=== PATIENT | female | born 1980 | race Hispanic/Latino ===

== ENCOUNTER 2021-10-19 17:48 | Inpatient (IN) | payer BC ==
--- OUTSIDE RECORDS SUMMARY | 2021-10-19 17:52 | XMS REPORT | Continuity of Care Document ---
:1980 Author Organization [facility] t Address [address] [place] [address] Care Team Providers Name Role Phone Nima VELAZQUEZ Primary Care Physician Unavailable Soni GARCIA Attending Clinician Unavailable Soni Diez Attending Clinician Luis Muir Attending Clinician Unavailable Nima Velazquez Admitting Clinician Unavailable Payers Payer Name Policy Type Policy Number Effective Date Expiration Date S romina [facility] - [id number] 2020 00:00:00 OUT OF STATE Problems Condition Condition Condition Status Onset Resolution Last Treating Co mments Source Name Details Category Date Date Treatment Clinician Date History of History of Disease Active U nivers Jo-en-Y Jo-en-Y 1-12 ity of gastric gastric 00:00: [place] bypass bypass 00 [facility] Abdominal Abdominal Disease Active 2016-10 Uni vers pain pain 2-14 ity of 00:00: [address] Bowel Bowel Disease Active 2016-10 Univers obstructio obstructio 2-14 it y of n n 00:00: [address] Surgery, Surgery, Disease Active Unive rs elective elective 9-04 ity of 00:00: [address] Multiparit Multiparit Disease Active U nivers y y 4-06 ity of 00:00: [address] Generalize Generalize Disease Active U nivers d anxiety d anxiety 10-28 ity of disorder disorder 00:00: [place] 00 Medical Branch Depression Depression Disease Active Overview : Univers 10-28 Formattin ity of 00:00: g of this 00 note Medical might be Branch different from the original. Wellbutri n History of History of Disease Active U nivers breast breast 10-28 ity of surgery surgery 00:00: [place] Medical Branch History of History of Disease Active Overview : Univers 10-28 Formattin ity of delivery, delivery, 00:00: g of this [place] currently currently 00 note Medi bill might be Bran ch different from the original. Previous CS x4. Desire BTL. Gallstones Gallstones Problem Active [facility] Depression Depression Problem Active [facility] Reflux Reflux Problem [facility] Lateral Lateral Diagnosis Active [facility] epicondyli epicondyli Cristy kes - tis of tis of Memoria right right l elbow elbow Outpati ent Clinics Pain in Pain in Diagnosis Active [facility] joint of joint of [facility] - right right [facility] elbow elbow l Outpat[facility] ent Clinics Right Right Problem Active [facility] carpal carpal [facility] - tunnel tunnel Memoria syndrome syndrome l Outpati ent Clinics Depression Depression Problem Active [facility] Bipolar Bipolar Problem Active [facility] affective affective Luke s - disorder, disorder, Marc nicole remission remission l status status Outpati unspecifie unspecifie en t d d Clinics Midline Midline Problem Active [facility] thoracic thoracic [facility] - back pain, back pain, Me moria unspecifie unspecifie l d d Outpati chronicity chronicity en t Clinics Anxiety Anxiety Problem Active [facility] Ulcer Ulcer Problem Active [facility] Lateral Lateral Diagnosis Active [facility] t epicondyli epicondyli Cristy kes - tis of tis of Memoria left elbow left elbow l Outpati ent Clinics Pain in Pain in Diagnosis Active [facility] left elbow left elbow [facility] Allergies, Adverse Reactions, Alerts Allergy Allergy Status Severity Reaction(s) Onset Inactive Treating Comm ents Source Name Type Date Date Clinician No Known DA Active U 2018-10 [facility] are [facility] No Known DA Active U 2018-10 [facility] Allergie 11-12 Jerem[facility] 00:00: [facility] 00 are [facility] No Known DA Active U 2018-10 [facility] Allergie 11-05 Jeremiah s 00:00: [facility] 00 are [facility] NO KNOWN Drug Active Univers ALLERGIE Class ity of S [facility] Social History Social Habit Start Date Stop Date Quantity Comments Source Exposure to Not sure [facility] SARS-CoV-2 [place] Medical (event) Branch History SDOH University o f Alcohol Frequency [place] M edical Branch History SDOH University o f Alcohol Std [place] Medical Drinks Branch History SDCO University o f Alcohol Binge [place] Medic al Branch Alcohol intake 2021-10-06 2021-10-06 0 /d University of 00:00:00 00:00:00 [facility] Alcohol Comment 2017-11-23 2017-11-23 she drinks a 12 Univ ersity of 00:00:00 00:00:00 pack daily [facility] Tobacco use and 2014-10-26 2014-10-26 Never used Universit y of exposure 00:00:00 00:00:00 [facility] Sex [birth year] At [birth year] Universit y of 00:00:00 00:00:00 [facility] Smoking Status Start Date Stop Date Source Never smoker [facility] Medications Ordered Filled Start Stop Current Ordering Indication Dosage Frequency Signature Comments Components Source Medication Medication Date Date Medication? Clinician (SIG) Name Name DULoxetine Yes [id number] 30mg Take 1 U nivers 30 mg 2-20 capsule by ity of capsule 00:00: mouth [place] 00 daily. Medical Branch Diclofenac Yes [id number] 2-4 grams Univers Sodium 1 % 2-20 twice ity of gel 00:00: daily as 00 needed for Medical pain Branch hydrOXYzine Yes [id number] 1 tabs Univers 25 mg 1-12 Every 6hr ity of tablet 00:00: as needed 00 for Medical anxiety Branch phenol 1.4 2016-10 Yes 1{spray Take 1 Un [place] % spray 2-18 } [place] by ity of 00:00: mouth as 00 needed for Medical Sore Branch throat. HYDROcodone 2016-10 Yes 1{tbl} Take 1 Un [place] -acetaminop 2-18 tablet by ity of hen 5-325 00:00: mouth [place] mg tablet 00 every 4 Medical (four) Branch hours as needed for Pain (scale 4-6). methylPREDN 2016-10 Yes Take by Un [place] ISolone 4 2-18 mouth ity of mg tablets 00:00: SEE-INSTRU [place] 00 CTIONS. Medical follow Branch package directions acetaminoph Yes 1{tbl} Take 1-2 Univers en-codeine 9-06 Tabs by ity of (TYLENOL 00:00: mouth [place] #3) 300-30 00 every 6 Medica l mg tablet (six) Branch hours as needed for Pain (scale 1-3) or Pain (scale 4-6). For patients < 12 years recommend do not exceed 5 doses or 2.6 gm in 24 hours totals for all acetaminop hen containing products. For adults with normal hepatic function recommend do not exceed 3 grams in 24 hours for all acetaminop hen containing products. ibuprofen Yes 600mg Take 1 Tab U nivers (MOTRIN) 06 by mouth ity of 600 mg 00:00: every 6 [place] tablet 00 (six) Medical hours as Branch needed for Pain (scale 1-3) or Pain (scale 4-6). Take with food or milk. Alfa Grimm Yes [facility] Tylenol Tylenol Yes [facility] not [facility] Immunizations Ordered Filled Immunization Date Status Comments [facility] e Immunization Name Name TDAP 2015-03-26 [facility] 00:00:00 [facility] Vital Signs Vital Name Observation Time Observation Value Comments Source Systolic blood 2021-10-06 16:04:00 125 mm[Hg] Univer sity of pressure [facility] Diastolic blood 2021-10-06 16:04:00 64 mm[Hg] [facility] Heart rate 2021-10-06 16:04:00 99 /min [facility] Body temperature 2021-10-06 16:04:00 37 Ning [facility] Respiratory rate 2021-10-06 16:04:00 18 /min [facility] Body weight 2021-10-06 16:04:00 57.607 kg [facility] BMI 2021-10-06 16:04:00 25.65 kg/m2 [facility] Oxygen saturation in 2021-10-06 16:04:00 99 /min [facility] blood by [facility] Pulse oximetry Branch Procedures Procedure Date / Time Performed Performing Clinician Sour e RAPID STREP SCREEN 2021-10-06 16:07:00 Kris Rodriguez [facility] FOR GROUP A Medical Branch RAPID INFLUENZA A/B 2021-10-06 16:07:00 Kris Rodriguez [facility] NOTICE OF PRIVACY 2021-10-06 16:01:13 Doctor Unassigned, No [facility] PRACTICES Name [facility] CONSENT/REFUSAL FOR 2021-10-06 16:00:56 [facility] AND Name Medical [place] TREATMENT Encounters Start End Encounter Admission Attending Care Care Encounter Source Date/Time Date/Time Type Type Clinicians Facility Department ID 2021-10-06 2021-10-06 Emergency X [facility] ERT [id number] Univers 10:07:00 11:16:00 JOSEPH yeagery of [facility] 2021-10-06 2021-10-06 Emergency [facility] [id number] Univers 10:07:00 11:16:00 Joseph AZUL [id number] [facility] [id number] [facility] [id number] [facility] 084 Branch 2019-09-11 2019-09-11 Outpatient VIRGILIO العليN DAYS [id number] [facility] 05:05:00 05:05:00 Rom[facility] [id number] [facility] 2019-01-12 2019-01-12 [facility] [id number] [address] 09:30:00 09:30:00 [facility] ent Clinics 2018-10-26 2018-10-26 [facility] [id number] 13:30:00 13:30:00 [facility] ent Clinics Results Test Description Test Time Test Comments Results Result Comments Source HGB HCT 2019-09-11 05:48:00 Test Item Value Reference Range Interpretation Comme nts HEMOGLOBIN (test code = HGB) 9.7 g/dL 12.0-15.0 L HEMATOCRIT (test code = HCT) 31.4 % 35.7-44.8 L HCG SERUM [id number] 16:10:00 Test Item Value Reference Range Interpretation Comments HCG SERUM QUAL NEGATIVE NEGATIVE This is a nora litative (test code = HCGQL) screenin g test.The quantitative Bh cg may be helpful.Weakly positive results should be repeated in 48 hours. [id number] 15:34:00 Test Item Value Reference Range Interpretation Comments GLUCOSE (test code = GLU) 93 mg/dl 70-100 N CBC W/AUTO [id number] 15:24:00 Test Item Value Reference Range Interpretation Comments WHITE BLOOD CELL (test code = 3.6 x10 3/uL 3.2-11.5 N WBC) RED BLOOD CELL (test code = 4.09 x10(6)/m 3.70-5.10 N RBC) HEMOGLOBIN (test code = HGB) 9.4 g/dL 12.0-15.0 L HEMATOCRIT (test code = HCT) 30.6 % 35.7-44.8 L MEAN CELL VOLUME (test code = 75 fL 80-100 L MCV) MEAN CELL HGB (test code = MCH) 23.0 pg 26.2-33.8 L MEAN CELL HGB CONCENTRATION 30.8 g/dL 30.0-34.0 N (test code = MCHC) RED CELL DISTRIBUTION WIDTH 19.4 % 11.3-14.5 H (test code = RDW) PLATELET COUNT (test code = 278 x10 3/uL 130-408 N PLT) MEAN PLATELET VOLUME (test code 8.9 fl 6.4-10.5 N = MPV) NEUTROPHIL % (test code = NT%) 56.7 % 40.0-70.0 N LYMPHOCYTE % (test code = LY%) 31.3 % 20-40 N MONOCYTE % (test code = MO%) 9.0 % 1-10 N EOSINOPHIL % (test code = EO%) 2.1 % 1.0-5.0 N BASOPHIL % (test code = BA%) 0.9 % 0.0-1.0 N NEUTROPHIL # (test code = NT#) 2.0 x10 3/uL 1.6-7.2 N LYMPHOCYTE # (test code = LY#) 1.10 x10 3/uL 1.1-2.7 N MONOCYTE # (test code = MO#) 0.3 x10 3/uL 0.3-0.8 N EOSINOPHIL # (test code = EO#) 0.1 x10 3/uL 0.0-0.5 N BASOPHIL # (test code = BA#) 0.0 x10 3/uL 0.0-0.1 N
[2021-10-19] MEDS ORDERED: ONDANSETRON 4 MG/2 ML VIAL ONE (18:53)
[2021-10-19] MEDS ORDERED: NA CHLORIDE 0.9% 1,000 ML ONE ×2 (18:53→20:36)
[2021-10-19] MEDS ORDERED: MEPERIDINE HCL 25 MG/ML SYR ONE (18:53)
[2021-10-19] MEDS ORDERED: FAMOTIDINE 20 MG/2 ML VIAL IV ONE (18:54)
[2021-10-19 18:56] LABS: Absolute Lymphocytes (CBC) 0.5 K/uL (0.7-4.9); Hematocrit 25.4 % (36.0-45.0); Lymphocytes % 7.1 % (15.3-44.8); MPV 9.3 fL (7.6-11.3); RBC Red Blood Cell Count 3.58 M/uL (3.86-4.86)
[2021-10-19 19:09] LABS: Potassium 3.4 mmol/L (3.5-5.1); Sodium Level 136 mmol/L (136-145)
[2021-10-19] MEDS ORDERED: CIPROFLOXACIN 400mg IV 400 MG/200 ML BAG IV ONE (19:16)
[2021-10-19] MEDS ORDERED: metroNIDAZOLE 500 MG TABLET ONE (19:16)
[2021-10-19 19:23] LABS: AST/SGOT 41 U/L (15-37); Alkaline Phosphatase 123 U/L (45-117); Bilirubin Total 0.3 mg/dL (0.2-1.0); Protein, Total 6.4 g/dL (6.4-8.2)
[2021-10-19 19:25] LABS: Blood Morphology Comment NOTED (NOT SEEN); Hypochromasia 1+; Platelet Estimate ADEQ; White Blood Cell Scan OK (OK)
--- NOTE | 2021-10-19 19:32 | RAD REPORT ---
EXAM DESCRIPTION: CTAbdomen Pelvis W Contrast - 10/19/2021 7:07 pm CLINICAL HISTORY: Abdominal pain. ABD PAIN COMPARISON: <Comparisons> TECHNIQUE: Biphasic CT imaging of the abdomen and pelvis was performed with 100 ml non-ionic IV cont rast. All CT scans are performed using dose optimization technique as appropriate and may include automated exposure control or mA/KV adjustment according to patient size. FINDINGS: The lung bases are clear.Cholecystectomy clips. The liver, spleen, pancreas, adrenal glands and kidneys are within normal limits. Postsurgical changes are present involving small intestine on the left. Moderate retained stool is se en in the colon. There is moderate thickening of the descending colon suspicious for colitis. The philip endix is normal. No free air, free fluid or abscess. No evidence of significant lymphadenopathy. No suspicious bony findings. IMPRESSION: Moderate descending colitis is present. No pneumatosis coli or other complicating featur e.
[2021-10-19 19:49] LABS: BUN Blood Urea Nitrogen 9 mg/dL (7-18); Bicarbonate 17 mmol/L (21-32); Bilirubin Direct 0.1 mg/dL (0-0.2); Glucose Level 93 mg/dL (74-106)
[2021-10-19 19:57] LABS: Albumin 2.7 g/dL (3.4-5.0); Lipase 53 U/L (73-393)
[2021-10-19 20:25] LABS: Urine Blood Trace-intact (Negative); Urine Glucose Negative (Negative); Urine Protein Negative (Negative); Urine Specific Gravity <=1.005 (1.005-1.030)
[2021-10-19] MEDS ORDERED: PANTOPRAZOLE 40 MG INJ ONE (20:36)
[2021-10-19 20:38] LABS: ALT/SGPT 75 U/L (12-78)
--- NOTE | 2021-10-19 21:04 | ER ---
Nurse's Notes [facility] Name: Amy Vee Age: 41 yrs Sex: Female : 1980 Arrival Date: 10/19/2021 Time: 17:53 Bed 7 Private MD: Diagnosis: Left sided colitis-Intractable pain;Nausea with vomiting, unspecified;Dehydration Presentation: 10/19 18:02 Chief complaint: Patient states: left side upper and lower abdominal pain since [facility] Wednesday; worse when she eats and multiple episodes of diarrhea. Pt denies vomiting. Coronavirus screen: Vaccine status: Patient reports receiving the 2nd dose of the covid vaccine. Client denies travel out of the [place] in the last 14 days. Ebola Screen: Patient negative for fever greater than or equal to 101.5 degrees Fahrenheit, and additional compatible Ebola Virus Disease symptoms Patient denies exposure to infectious person. Patient denies travel to an Ebola-affected area in the 21 days before illness onset. Initial Sepsis Screen: Does the patient meet any 2 criteria? HR > 90 bpm. Does the patient have a suspected source of infection? No. Patient's initial sepsis screen is negative. Risk Assessment: Do you want to hurt yourself or someone else? Patient reports no desire to harm self or others. Onset of symptoms was October 15, 2021. 18:02 Method Of Arrival: Ambulatory [facility] 18:02 Acuity: GAL 3 [facility] Triage Assessment: 18:05 General: Appears distressed, uncomfortable, Behavior is calm, cooperative, appropriate [facility] for age. Pain: Complains of pain in abdomen. GI: Reports cramping, diarrhea. 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 - Social history:: Smoking status: Patient denies any tobacco usage or history of. Screenin:00 Abuse screen: Denies threats or abuse. Nutritional screening: No deficits noted. jd3 Tuberculosis screening: No symptoms or risk factors identified. Fall Risk Ambulatory Aid- None/Bed Rest/Nurse Assist (0 pts). Gait- Normal/Bed Rest/Wheelchair (0 pts) Mental Status- Oriented to own ability (0 pts). Total Peters Fall Scale indicates No Risk (0-24 pts). Assessment: 18:59 General: Appears in no apparent distress. uncomfortable, Behavior is calm, cooperative, jd3 appropriate for age. Pain: Complains of pain in abdomen. Neuro: Level of Consciousness is awake, alert, obeys commands, Oriented to person, place, time, situation. Cardiovascular: Capillary refill < 3 seconds Patient's skin is warm and dry. Respiratory: Airway is patent Respiratory effort is even, unlabored, Respiratory pattern is regular, symmetrical, Denies cough, shortness of breath. GI: Abdomen is non-distended, Abd is soft X 4 quads Abdomen is tender to palpation X 4 quads. Reports diarrhea, nausea. : No signs and/or symptoms were reported regarding the genitourinary system. EENT: No signs and/or symptoms were reported regarding the EENT system. Derm: Skin is intact, Skin is dry, Skin is normal, Skin temperature is warm. Musculoskeletal: No signs and/or symptoms reported regarding the musculoskeletal system. Vital Signs: 18:02 BP 115 / 65; Pulse 108; Resp 18; Temp 98.7; Pulse Ox 100% ; Weight 58.97 kg; Height 5 jh5 ft. 0 in. (152.40 cm); Pain 10/10; 19:23 BP 100 / 59; Pulse 87; Resp 18 S; Pulse Ox 98% on R/A; as6 18:02 Body Mass Index 25.39 (58.97 kg, 152.40 cm) [facility] ED Course: 17:53 Patient arrived in ED. mr 17:54 Carl Torres MD is Attending Physician. kdr 18:05 Triage completed. jh5 18:05 Arm band placed on right wrist. 5 18:30 Rosalio Kelly RN is Primary Nurse. jd3 19:00 Patient has correct armband on for positive identification. Bed in low position. Call jd3 light in reach. Side rails up X 1. Adult w/ patient. Pulse ox on. NIBP on. 19:03 Primary Nurse role handed off by Rosalio Kelyl RN mw2 19:07 CT Abd/Pelvis - IV Contrast Only In Process Unspecified. EDMS 19:08 Attending Physician role handed off by Carl Torres MD [facility] 19:08 Juan Perez MD is Attending Physician. mh7 19:09 Fabián Mason, MARIA DE JESUS is Primary Nurse. as6 19:24 Inserted saline lock: 22 gauge in left forearm, using aseptic technique. Blood as6 collected. 21:02 Alaina Trujillo MD is Hospitalizing Provider. [facility] 10/20 07:00 No provider procedures requiring assistance completed. Patient admitted, IV remains in jl7 place. Administered Medications: 10/19 18:58 Drug: NS 0.9% 1000 ml Route: IV; Rate: 1 bolus; Site: left forearm; jd3 18:58 Drug: Pepcid (famotidine) 20 mg Route: IVP; Site: left forearm; jd3 18:58 Drug: Zofran (Ondansetron) 4 mg Route: IVP; Site: left forearm; jd3 18:58 Drug: Demerol (meperidine) 25 mg Route: IVP; Site: left forearm; jd3 19:23 Drug: Cipro (ciprofloxacin) 400 mg Volume: 200 ml; Route: IVPB; Infused Over: 60 mins; as6 Site: left forearm; 19:23 Drug: Flagyl (metroNIDAZOLE) 500 mg Route: PO; as6 20:40 Drug: ProTONIX (pantoprazole) 40 mg Route: IVP; Site: left forearm; as6 20:40 Drug: NS 0.9% 1000 ml Route: IV; Rate: 1000 ml; Site: left forearm; as6 21:43 Drug: Dilaudid (HYDROmorphone) 0.5 mg Route: IVP; Site: left forearm; as6 Outcome: 21:04 Decision to Hospitalize by Provider. [facility] 10/20 07:00 Admitted to ER Hold. Please see [employer] for further documentation. jl7 Condition: stable Discharge instructions given to patient, Instructed on the need for admit, Demonstrated understanding of instructions. 19:17 Patient left the ED. jl7 Signatures: Dispatcher [employer] EDMS Carl Torres MD MD kdr Rivera, Mary mr ArshadZac RN RN jl7 Rosalio Kelly RN RN jd3 Samara Brito 2 Juan Perez MD MD [facility] Akanksha Shine RN RN 5 Fabián Mason, RN RN as6
--- NOTE | 2021-10-19 21:04 | EDPHYS ---
Physician Documentation [facility] Name: Amy Vee Age: 41 yrs Sex: Female : 1980 Arrival Date: 10/19/2021 Time: 17:53 Bed 7 Private MD: ED Physician Juan Perez HPI: 10/19 18:34 This 41 yrs old Female presents to ER via Ambulatory with complaints of kdr Abdominal Pain, Vomiting/Diarrhea, Flu Symptoms. 18:34 The patient presents to the emergency department with nausea, that is mild, diarrhea, kdr that is intermittent, abdominal pain, of the anterior aspect of left lateral abdomen, left upper quadrant and left lower quadrant. Onset: The symptoms/episode began/occurred suddenly, Wednesday night after going out to a restaurant. Possible causes: bad food exposure. The symptoms are aggravated by food , The symptoms are alleviated by nothing. Associated signs and symptoms: Pertinent positives: abdominal pain, diarrhea, nausea, Pertinent negatives: anorexia, constipation, dysuria, fever, hematuria, vaginal discharge. Severity of symptoms: At their worst the symptoms were severe incapacitating just prior to arrival, in the emergency department the symptoms are unchanged. The patient has not experienced similar symptoms in the past. The patient has been recently seen by a physician: Patient was seen in the ER [place] on night. According the patient they did nothing for her then other than tell her to go home and take Tylenol and Motrin. Her symptoms have continued.. 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 - Social history:: Smoking status: Patient denies any tobacco usage or history of. ROS: 18:37 Constitutional: Negative for fever, chills, and weight loss, Eyes: Negative for injury, kdr pain, redness, and discharge, ENT: Negative for injury, pain, and discharge, Neck: Negative for injury, pain, and swelling, Cardiovascular: Negative for chest pain, palpitations, and edema, Respiratory: Negative for shortness of breath, cough, wheezing, and pleuritic chest pain, Back: Negative for injury and pain, : Negative for injury, bleeding, discharge, and swelling, MS/Extremity: Negative for injury and deformity, Skin: Negative for injury, rash, and discoloration, Neuro: Negative for headache, weakness, numbness, tingling, and seizure activity. Psych: Negative for depression, anxiety, suicide ideation, homicidal ideation, and hallucinations, Allergy/Immunology: Negative for hives, rash, and allergies, Endocrine: Negative for neck swelling, polydipsia, polyuria, polyphagia, and marked weight changes, Hematologic/Lymphatic: Negative for swollen nodes, abnormal bleeding, and unusual bruising. 18:37 Abdomen/GI: Positive for abdominal pain, nausea, diarrhea, abdominal cramps, She states that whenever she eats or drinks anything she has immediate diarrhea. Exam: 18:37 Constitutional: This is a well developed, well nourished patient who is awake, alert, kdr and in mild distress. Head/Face: Normocephalic, atraumatic. Eyes: Pupils equal round and reactive to light, extra-ocular motions intact. Lids and lashes normal. Conjunctiva and sclera are non-icteric and not injected. Cornea within normal limits. Periorbital areas with no swelling, redness, or edema. Neck: Trachea midline, no thyromegaly or masses palpated, and no cervical lymphadenopathy. Supple, full range of motion without nuchal rigidity, or vertebral point tenderness. No Meningismus. Chest/axilla: Normal chest wall appearance and motion. Nontender with no deformity. No lesions are appreciated. Cardiovascular: Regular rate and rhythm with a normal S1 and S2. No gallops, murmurs, or rubs. Normal PMI, no JVD. No pulse deficits. Respiratory: Lungs have equal breath sounds bilaterally, clear to auscultation and percussion. No rales, rhonchi or wheezes noted. No increased work of breathing, no retractions or nasal flaring. Back: No spinal tenderness. No costovertebral tenderness. Full range of motion. Skin: Warm, dry with normal turgor. Normal color with no rashes, no lesions, and no evidence of cellulitis. MS/ Extremity: Pulses equal, no cyanosis. Neurovascular intact. Full, normal range of motion. Neuro: Awake and alert, GCS 15, oriented to person, place, time, and situation. Cranial nerves II-XII grossly intact. Motor strength 5/5 in all extremities. Sensory grossly intact. Cerebellar exam normal. Normal gait. Psych: Awake, alert, with orientation to person, place and time. Behavior, mood, and affect are within normal limits. 18:37 Abdomen/GI: Inspection: abdomen appears normal, Bowel sounds: diminished, in all quadrants, Palpation: soft, mild abdominal tenderness. Vital Signs: 18:02 BP 115 / 65; Pulse 108; Resp 18; Temp 98.7; Pulse Ox 100% ; Weight 58.97 kg; Height 5 jh5 ft. 0 in. (152.40 cm); Pain 10/10; 19:23 BP 100 / 59; Pulse 87; Resp 18 S; Pulse Ox 98% on R/A; as6 18:02 Body Mass Index 25.39 (58.97 kg, 152.40 cm) 5 MDM: 18:37 Data reviewed: vital signs, lab test result(s), radiologic studies. Counseling: I had a kdr detailed discussion with the patient and/or guardian regarding: the historical points, exam findings, and any diagnostic results supporting the discharge/admit diagnosis, lab results, radiology results. 21:01 Differential diagnosis: Nonspecific abd pain, gastritis, pancreatitis, diverticulitis, mh7 viral gastroenteritis, gastroenteritis. Data interpreted: Pulse oximetry: on room air is 98 %. Interpretation: normal. Response to treatment: the patient's symptoms have mildly improved after treatment. 21:01 ED course: No acute distress, vital signs stable, no focal neurological deficits. Still mary having left-sided abdominal pain, nausea, diarrhea. Discussed all test results and findings. She reports history of iron deficiency anemia but has not been taking any medication. Stool tested from sample that patient gave and was guaiac negative brown stool.. 21:04 Patient medically screened. 7 10/19 18:33 Order name: Basic Metabolic Panel; Complete Time: 20:51 [facility] 10/19 18:33 Order name: CBC with Diff; Complete Time: 19:31 [facility] 10/19 18:33 Order name: Hepatic Function; Complete Time: 20:51 [facility] 10/19 18:33 Order name: Lipase; Complete Time: 20:51 [facility] 10/19 18:33 Order name: Stool Culture [facility] 10/19 18:33 Order name: Fecal Leukocyte Stain; Complete Time: 08:13 [facility] 10/19 18:33 Order name: Occult Blood; Complete Time: 08:13 [facility] 10/19 18:33 Order name: Ova And Parasites [facility] 10/19 18:37 Order name: Acetaminophen [facility] 10/19 18:37 Order name: Salicylate [facility] 10/19 18:37 Order name: PT-INR; Complete Time: 19:31 [facility] 10/19 18:38 Order name: Acetaminophen Level; Complete Time: 19:34 [facility] 10/19 18:38 Order name: Salicylates Level; Complete Time: 19:31 [facility] 10/19 19:24 Order name: CBC Smear Scan; Complete Time: 19:31 [facility] 10/19 18:33 Order name: CT Abd/Pelvis - IV Contrast Only; Complete Time: 19:34 [facility] 10/19 20:24 Order name: Urine Dipstick-Ancillary; Complete Time: 20:26 [facility] 10/19 20:51 Order name: Lactate; Complete Time: 08:13 [facility] 10/19 20:51 Order name: Procalcitonin; Complete Time: 08:13 [facility] 10/19 21:00 Order name: COVID-19 (Coronavirus) Document "Date of Onset" if Symptomatic [facility] 10/20 00:35 Order name: Iron; Complete Time: 08:13 [facility] 10/20 00:35 Order name: Transferrin Sat/Iron Binding; Complete Time: 08:13 [facility] 10/20 01:12 Order name: SARS-COV-2 RT PCR; Complete Time: 08:13 [facility] 10/20 02:07 Order name: CREATININE WHOLE BLOOD; Complete Time: 08:13 [facility] 10/20 04:03 Order name: CBC with Automated Diff; Complete Time: 08:13 [facility] 10/20 04:26 Order name: Comprehensive Metabolic Panel; Complete Time: 08:13 [facility] 10/20 04:26 Order name: Lipid Profile; Complete Time: 08:13 [facility] 10/19 18:33 Order name: IV Saline Lock; Complete Time: 18:50 [facility] 10/19 18:33 Order name: Labs collected and sent; Complete Time: 18:50 [facility] 10/19 18:33 Order name: Urine Test (obtain specimen); Complete Time: 20:25 kdr Administered Medications: 18:58 Drug: NS 0.9% 1000 ml Route: IV; Rate: 1 bolus; Site: left forearm; jd3 18:58 Drug: Pepcid (famotidine) 20 mg Route: IVP; Site: left forearm; jd3 18:58 Drug: Zofran (Ondansetron) 4 mg Route: IVP; Site: left forearm; jd3 18:58 Drug: Demerol (meperidine) 25 mg Route: IVP; Site: left forearm; jd3 19:23 Drug: Cipro (ciprofloxacin) 400 mg Volume: 200 ml; Route: IVPB; Infused Over: 60 mins; as6 Site: left forearm; 19:23 Drug: Flagyl (metroNIDAZOLE) 500 mg Route: PO; as6 20:40 Drug: ProTONIX (pantoprazole) 40 mg Route: IVP; Site: left forearm; as6 20:40 Drug: NS 0.9% 1000 ml Route: IV; Rate: 1000 ml; Site: left forearm; as6 21:43 Drug: Dilaudid (HYDROmorphone) 0.5 mg Route: IVP; Site: left forearm; as6 Disposition Summary: 10/19/21 21:04 Hospitalization Ordered Hospitalization Status: Inpatient Admission [facility] Provider: Alaina Trujillo Henrik Condition: Stable [facility] Problem: [facility] Symptoms: have improved [facility] Bed/Room Type: Standard [facility] Location: Telemetry/MedSurg (Inpatient)(10/20/21 17:24) Room Assignment: 405(10/20/21 17:24) Diagnosis - Left sided colitis - Intractable pain mh7 - Nausea with vomiting, unspecified mh7 - Dehydration [facility] Forms: - Medication Reconciliation Form 7 - SBAR form 7 Signatures: Dispatcher [employer] Nadja Mendoza Martha, RN RN mw Rittger, Kevin, MD MD kdr Roszak, Josh, PA PA jr8 Davies, Jonathon, RN RN jd3 Holmes, Maurice, MD MD Akanksha Buckner RN RN 5 Fabián Mason RN RN as6 Corrections: (The following items were deleted from the chart) 10/20 01:35 10/19 21:04 Telemetry/MedSurg (Inpatient) [facility] 10/20 01:35 10/19 21:04 [facility] 01/17 17:24 01:35 [facility] ER HOLD mw bd 17:24 01:35 ERHOLD- mw bd
[2021-10-19] MEDS ORDERED: HYDROMORPHONE HCL 0.5 MG/0.5 ML INJ ONE (21:36)
--- NOTE | 2021-10-19 21:46 | P.HP ---
Certification for Inpatient Patient admitted to: Observation With expected LOS: <2 Midnights Patient will require the following post-hospital care: None Practitioner: I am a practitioner with admitting privileges, knowledge of patient current condition, hospital course, and medical plan of care. Services: Services provided to patient in accordance with Admission requirements found in Title 42 Section 412.3 of the Code of Federal Regulations Patient History Date of Service: 10/19/21 Reason for admission: colitis History of Present Illness: Ms. Vee is a 41 yo F with iron deficiency anemia who presents with 10/10 left sided abdominal pain and diarrhea beginning on Wednesday after she ate at a buffet. She reports fatigue, weakness, nausea, and cramping. She cannot keep any food or water down. Sometimes she is able to tolerate small sips of pedialyte. She says she feels very dehydrated. She received demerol in the ED, and is still experiencing severe pain. She has been told she was anemic in the past. She reports regular monthly menstrual cycles that last 5-7 days and are very heavy. She is scheduled to see an OBGYN about the menorrhaghia on 11/06. She does not take any iron supplements. Hemoglobin 7.8 MCV 70.8 K 3.4 CTAP IMPRESSION: Moderate descending colitis is present. No pneumatosis coli or other complicating feature. Allergies Morphine Allergy (Uncoded 09/16/17 03:24) Unknown Home Medications: Cyanocobalamin [B12 Injection] 1,000 mcg IJ EVERY 7TH DAY 02/03/16 Ferrous Sulfate [Feosol] 325 mg PO DAILY 02/03/16 Phentermine HCl [Adipex-P] 37.5 mg PO DAILY 10/06/16 Hydrocodone 10/APAP 325 [[place] 10/325] 1 tab PO Q6H PRN #30 tab 10/09/16 - Past Medical/Surgical History Diabetic: No -: iron deficiency anemia -: PUD -: kidney stones -: gastritis -: [facility] -: [facility] -: [facility] -: [facility] -: -: Breast Implants -: Gastric Bypass -: carmenza, exlap, hernia repair - Family History Mother -: Hypertension, Diabetes Father -: Stroke, Cancer, Seizures - Social History Smoking Status: Never smoker Alcohol use: Yes CD- Drugs: No Caffeine use: Yes Place of Residence: Home Review of Systems 10-point ROS is otherwise unremarkable General: Weakness, Malaise Eyes: Unremarkable ENT: Unremarkable Respiratory: Unremarkable Cardiovascular: Unremarkable Gastrointestinal: Abdominal Pain, Diarrhea Genitourinary: Unremarkable Musculoskeletal: Unremarkable Integumentary: Unremarkable Neurological: Unremarkable Lymphatics: Unremarkable Physical Examination - Physical Exam General: Alert HEENT: Atraumatic, PERRLA, Mucous membr. moist/pink, EOMI, Sclerae nonicteric Neck: Supple, 2+ carotid pulse no bruit, No LAD, Without JVD or thyroid abnormality Respiratory: Clear to auscultation bilaterally, Normal air movement Cardiovascular: Regular rate/rhythm, Normal S1 S2 Gastrointestinal: Normal bowel sounds, Soft and benign, Non-distended, Tenderness Musculoskeletal: No tenderness Integumentary: No rashes Neurological: Normal speech, Normal strength at 5/5 x4 extr, Normal tone, Normal affect Lymphatics: No axilla or inguinal lymphadenopathy - Studies Laboratory Data (last 24 hrs) 10/19/21 18:55: PT 11.5, INR 1.00 10/19/21 18:48: WBC 7.50, Hgb 7.8 L, Hct 25.4 L, Plt Count 255 10/19/21 18:48: Sodium 136, Potassium 3.4 L, BUN 9, Creatinine 0.71, Glucose 93, Total Bilirubin 0.3, AST 41 H, ALT 75, Alkaline Phosphatase 123 H, Lipase 53 L Microbiology Data (last 24 hrs): 10/19/21 20:19 Stool Fecal Leukocyte Stain - Final 10/19/21 20:19 Stool Occult Blood - Final Assessment and Plan - Problems (Diagnosis) (1) Dehydration Current Visit: Yes Status: Acute (2) Colitis Current Visit: Yes Status: Acute (3) NICHOL (iron deficiency anemia) Current Visit: Yes Status: Chronic Qualifiers: Iron deficiency anemia type: unspecified iron deficiency Qualified Code(s): D50.9 - Iron deficiency anemia, unspecified - Plan NPO continue IV cipro and flagyl continue IV fluid hydration pain management and antiemetics as needed anemia workup pending, will consider IV iron transfusion, will transfuse pRBCs to goal hemoglobin >7 as needed potassium replacement protocol stool cultures pending DVT ppx Discharge Plan: Home Plan to discharge in: 48 Hours - Advance Directives Does patient have a Living Will: No Does patient have a Durable POA for Healthcare: No - Code Status/Comfort Care Code Status Assessed: Yes (full code ) Critical Care: No Time Spent Managing Pts Care (In Minutes): 70
[2021-10-20] MEDS: NA CHLORIDE 0.9% 1,000 ML IV SCH ×4 (00:10→18:52)
[2021-10-20] MEDS ORDERED: DICYCLOMINE HCL 10 MG CAP PO ONE (00:10)
[2021-10-20] MEDS ORDERED: ACETAMINOPHEN 500 MG TAB PO PRN (00:10)
[2021-10-20] MEDS ORDERED: ONDANSETRON 4 MG/2 ML VIAL IV PRN (00:10)
[2021-10-20] MEDS ORDERED: HYDROMORPHONE HCL 0.5 MG/0.5 ML INJ IV PRN (00:10)
[2021-10-20 00:35] LABS: Ferritin 22.4 ng/mL (8-388)
[2021-10-20] MEDS: FENTANYL CITR 100 MCG/2 ML IV PRN ×2 (01:08→22:56)
[2021-10-20] MEDS: METRONIDAZOLE 500mg IVPB 500 MG/100 ML BAG IV SCH ×3 (03:00→17:00)
[2021-10-20] MEDS ORDERED: METRONIDAZOLE 500mg IVPB 500 MG/100 ML BAG IV ONE ×3 (03:36→18:12)
[2021-10-20] MEDS ORDERED: PROMETHAZINE INJ 25 MG/ML AMP ONE (03:41)
[2021-10-20 03:46] LABS: Absolute Lymphocytes (CBC) 0.7 K/uL (0.7-4.9); Hematocrit 24.7 % (36.0-45.0); Lymphocytes % 11.6 % (15.3-44.8); MPV 9.4 fL (7.6-11.3); RBC Red Blood Cell Count 3.46 M/uL (3.86-4.86)
[2021-10-20] MEDS: PROMETHAZINE INJ 25 MG/ML AMP IV PRN (03:52)
[2021-10-20 04:20] LABS: ALT/SGPT 83 U/L (12-78); AST/SGOT 77 U/L (15-37); Albumin 2.1 g/dL (3.4-5.0); Alkaline Phosphatase 120 U/L (45-117); BUN Blood Urea Nitrogen 5 mg/dL (7-18); Bicarbonate 21 mmol/L (21-32); Bilirubin Total 0.3 mg/dL (0.2-1.0); Glucose Level 91 mg/dL (74-106); HDL Cholesterol 54 mg/dL (40-60); LDL Cholesterol, Calculated 27 (<130); Potassium 3.8 mmol/L (3.5-5.1); Protein, Total 5.3 g/dL (6.4-8.2); Sodium Level 140 mmol/L (136-145)
[2021-10-20] MEDS: CIPROFLOXACIN 400mg IV 400 MG/200 ML BAG IV SCH ×3 (07:00→20:48)
[2021-10-20] MEDS ORDERED: THIAMINE 200 MG/2 ML INJ ONE (08:56)
[2021-10-20] MEDS ORDERED: FOLIC ACID 5 MG/ML VIAL ONE (08:59)
[2021-10-20] MEDS ORDERED: FOLIC ACID 5 MG/ML VIAL IVP SCH (09:00)
[2021-10-20] MEDS: THIAMINE 200 MG/2 ML INJ IVP SCH (09:00)
[2021-10-20] MEDS: FOLIC ACID 1 MG in NA CHLORIDE 0.9% 50 ML IV SCH (09:00)
[2021-10-20] MEDS: SOD FERRIC GLUC COMPLX/SUCROSE 125 MG in NA CHLORIDE 0.9% 100 ML IV SCH (09:00)
--- NOTE | 2021-10-20 10:15 | CON ---
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 She had a defect of the jejunojejunostomy. She did well subsequently thereafter in 2017. She now presents [facility] for abdominal pain in the left lower quadrant. Past Medical History: Significant for obesity, iron deficiency anemia, PVD, kidney stones, gastritis , breast implants and body lift for cosmetic purposes. Past Surgical History: Includes multiple C-sections. She had a Jo-en-Y gastric bypass in 2007 and laparoscopic cholecystectomy. She has had 5 C-sections total. Home Medications: Include cyanocobalamin, B12, ferrous sulfate. Add Adipex (phentermine) and [place]. Allergies: TO MORPHINE. Social History: She denies smoking. She drinks alcohol recreationally. She denies recreational oswald g use. Family History: Significant for hypertension, diabetes. Family history in father significant for [place], cancer, and seizures. Review of Systems: Ten-point review of systems other than HPI, denies. Physical Examination: General: At the time of my examination; she is awake, alert, oriented. Psychiatric: She is appropriate. Conversive. Vital Signs: Blood pressure 98/62, pulse 73, respiratory rate 16, temperature 98.8, SpO2 97% on room air. Neck: Supple without JVD. Chest: Normal expansion and excursion. Cardiovascular: Regular rate and rhythm. Pulmonary: Clear to auscultation bilaterally. Abdomen: Soft with positive left lower quadrant tenderness to palpation. No focal peritonitis. She has well-healed surgical scars evident. Pelvis: Stable. Extremities: No clubbing, cyanosis, or edema. Skin: Warm and dry. Laboratory Data: Revealed a white blood cell count of 6.4, hemoglobin 7.4, hematocrit of 24.7, plate let count was 252, neutrophils 76%. Her sodium 140, potassium 3.8, chloride 116, carbon dioxide 21, BUN 5, creatinine 0.5, glucose is 91. Her lactic acid was 0.8. AST 77, ALT 83, alkaline phosphatase is 120. Lipase was 53. Procalcitonin 0.06. Her COVID was positive. Salicylates was less than 1.7 . She had imaging performed, which included a CT of the abdomen and pelvis on 10/19 officially read as postsurgical changes are present involving the small intestine on the left, moderate retained stoo l seen in the colon, moderate thickening of the descending colon suspicious for colitis. The appendi x is normal. The official impression is moderate descending colitis is present and the pneumatosis c mj or other complicating features. Assessment And Plan: This is a 41-year-old female with multiple medical problems as described above, who presents with left-sided colitis. She has never had a colonoscopy. Plan; 1.IV fluid hydration. 2.N.p.o. 3.Antibiotic coverage. 4.Serial exams. 5.I explained the patient will need a colonoscopy after she resolves this colitis episode. She unde rstands the above stated plan and agrees to proceed as indicated. AARON/TYSON Voice ID: [id number] Report ID: [id number]
--- NOTE | 2021-10-20 10:23 | P.PN ---
Subjective Date of Service: 10/20/21 Chief Complaint: colitis Subjective: Improving (Still with abdominal pain to the left lower quadrant. Nausea improved. Some passage of gas. No bowel movement noted) Physical Examination - Studies Laboratory Data (last 24 hrs) 10/19/21 18:55: PT 11.5, INR 1.00 10/19/21 18:48: WBC 7.50, Hgb 7.8 L, Hct 25.4 L, Plt Count 255 10/19/21 18:48: Sodium 136, Potassium 3.4 L, BUN 9, Creatinine 0.71, Glucose 93, Total Bilirubin 0.3, AST 41 H, ALT 75, Alkaline Phosphatase 123 H, Lipase 53 L Microbiology Data (last 24 hrs): 10/19/21 20:19 Stool Fecal Leukocyte Stain - Final 10/19/21 20:19 Stool Occult Blood - Final Assessment & Plan Discharge Plan: Home Plan to discharge in: 72 Hours Physician Review Additional Text: COVID: positive CT scan: Physical exam: General: Alert HEENT: Atraumatic, PERRLA, Mucous membr. moist/pink, EOMI, Sclerae nonicteric Neck: Supple, 2+ carotid pulse no bruit, No LAD, Without JVD or thyroid abnormality Respiratory: Clear to auscultation bilaterally, Normal air movement Cardiovascular: Regular rate/rhythm, Normal S1 S2 Gastrointestinal: Normal bowel sounds, Soft and benign, Non-distended, Tenderness Musculoskeletal: No tenderness Integumentary: No rashes Neurological: Normal speech, Normal strength at 5/5 x4 extr, Normal tone, Normal affect Lymphatics: No axilla or inguinal lymphadenopathy Impression: Nausea, abdominal pain secondary to left-sided colitis Anemia of chronic disease with iron deficiency Positive COVID 19, asymptomatic Plan: Nausea, abdominal pain secondary to left-sided colitis: Patient remains n.p.o. at this time. Continue aggressive IV fluid hydration. Continue IV Cipro and Flagyl. Provide medication for pain and nausea. We will consult surgery who has seen the patient in the past. Encourage ambulation. Anticipate continued improvement. Consider clear liquids once patient without significant abdominal pain. Anemia of chronic disease with iron deficiency: We will monitor hemoglobin closely. Continue IV iron at this time. Maintain hemoglobin above 7.5. Positive COVID 19, asymptomatic: Patient appears asymptomatic. Patient on room air. We will monitor this closely. CODE STATUS: Full code DVT prophylaxis: SCD Advance care [id number] minutes: Home at discharge Time Spent Managing Pts Care (In Minutes): 55
[2021-10-20 18:08] VITALS: BMI 25.4
[2021-10-20] MEDS ORDERED: KCL 20 MEQ/100 mL IVPB 20 MEQ/100 ML BAG IV SCH (19:00)
[2021-10-20 19:53] VITALS: O2SAT 98
[2021-10-20] MEDS ORDERED: INFLUENZA VACCINE (for 6+ mo) 0.5 ML DOSE IMVAC ONE (20:00)
[2021-10-20] MEDS ORDERED: POTASSIUM 25 MEQ EFFERV TAB PO ONE (20:49)
[2021-10-21] MEDS: NA CHLORIDE 0.9% 1,000 ML IV SCH ×4 (00:10→21:38)
[2021-10-21] MEDS: METRONIDAZOLE 500mg IVPB 500 MG/100 ML BAG IV SCH ×3 (00:28→16:52)
[2021-10-21] MEDS: PROMETHAZINE INJ 25 MG/ML AMP IV PRN (00:56)
[2021-10-21 03:55] LABS: Absolute Lymphocytes (CBC) 1.1 K/uL (0.7-4.9); Hematocrit 22.5 % (36.0-45.0); Lymphocytes % 29.6 % (15.3-44.8); MPV 9.3 fL (7.6-11.3); RBC Red Blood Cell Count 3.17 M/uL (3.86-4.86)
[2021-10-21] MEDS ORDERED: NA CHLORIDE 0.9% 250 ML IV SCH (04:00)
[2021-10-21 04:13] LABS: ALT/SGPT 59 U/L (12-78); AST/SGOT 28 U/L (15-37); Alkaline Phosphatase 96 U/L (45-117); BUN Blood Urea Nitrogen 4 mg/dL (7-18); Bicarbonate 21 mmol/L (21-32); Bilirubin Total 0.2 mg/dL (0.2-1.0); Ferritin 173.4 ng/mL (8-388); Glucose Level 81 mg/dL (74-106); Magnesium 2.2 mg/dL (1.8-2.4); Potassium 3.6 mmol/L (3.5-5.1); Protein, Total 5.1 g/dL (6.4-8.2); Sodium Level 143 mmol/L (136-145)
--- NOTE | 2021-10-21 06:14 | P.PN ---
Subjective Date of Service: 10/21/21 Chief Complaint: colitis Subjective: Improving (Patient reports improvement in symptoms.) Physical Examination - Vital Signs Temperature: 97.6 F Blood Pressure: 97/55 Pulse: 74 Respirations: 19 Pulse Ox (%): 97 Assessment & Plan Discharge Plan: Home Plan to discharge in: 48 Hours Physician Review Additional Text: COVID: positive CT scan: COMPARISON: <Comparisons> TECHNIQUE: Biphasic CT imaging of the abdomen and pelvis was performed with 100 ml non-ionic IV contrast. All CT scans are performed using dose optimization technique as appropriate and may include automated exposure control or mA/KV adjustment according to patient size. FINDINGS: The lung bases are clear.Cholecystectomy clips. The liver, spleen, pancreas, adrenal glands and kidneys are within normal limits. Postsurgical changes are present involving small intestine on the left. Moderate retained stool is seen in the colon. There is moderate thickening of the descending colon suspicious for colitis. The appendix is normal. No free air, free fluid or abscess. No evidence of significant lymphadenopathy. No suspicious bony findings. IMPRESSION: Moderate descending colitis is present. No pneumatosis coli or other complicating feature. Physical exam: General: Alert HEENT: Atraumatic, PERRLA, Mucous membr. moist/pink, EOMI, Sclerae nonicteric Neck: Supple, 2+ carotid pulse no bruit, No LAD, Without JVD or thyroid abnormality Respiratory: Clear to auscultation bilaterally, Normal air movement Cardiovascular: Regular rate/rhythm, Normal S1 S2 Gastrointestinal: Less abdominal pain noted. Musculoskeletal: No tenderness Integumentary: No rashes Neurological: Normal speech, Normal strength at 5/5 x4 extr, Normal tone, Normal affect Lymphatics: No axilla or inguinal lymphadenopathy Impression: Nausea, abdominal pain secondary to left-sided colitis Anemia of chronic disease with iron deficiency Positive COVID 19, asymptomatic Plan: Nausea, abdominal pain secondary to left-sided colitis: Less abdominal pain noted. Will advance diet to clear liquids. Continue IV fluids. Continue IV antibiotic therapyCipro and Flagyl. Case discussed with surgery. We will slowly advance diet over the next 1 to 2 days. Hemoglobin was low this morning. Will transfuse 2 units. Anticipate continued improvement. Anemia of chronic disease with iron deficiency: We will transfuse 2 units of blood. Maintain hemoglobin above 7.5. Positive COVID 19, asymptomatic: Patient appears asymptomatic. Patient on room air. We will monitor this closely. CODE STATUS: Full code DVT prophylaxis: SCD Advance care minutes: Home at discharge Time Spent Managing Pts Care (In Minutes): 55
[2021-10-21] MEDS ORDERED: POTASSIUM 25 MEQ EFFERV TAB PO ONE (09:00)
[2021-10-21] MEDS: CIPROFLOXACIN 400mg IV 400 MG/200 ML BAG IV SCH ×2 (09:23→21:39)
[2021-10-21] MEDS: FOLIC ACID 1 MG in NA CHLORIDE 0.9% 50 ML IV SCH (09:24)
[2021-10-21] MEDS: SOD FERRIC GLUC COMPLX/SUCROSE 125 MG in NA CHLORIDE 0.9% 100 ML IV SCH (09:24)
[2021-10-21] MEDS: THIAMINE 200 MG/2 ML INJ IVP SCH (09:24)
[2021-10-21] MEDS ORDERED: NA CHLORIDE 0.9% 250 ML ONE ×2 (13:41→23:13)
[2021-10-21] MEDS ORDERED: MELATONIN 5 MG TABLET PO PRN (18:20)
[2021-10-21] MEDS: FENTANYL CITR 100 MCG/2 ML IV PRN (21:44)
[2021-10-22] MEDS: NA CHLORIDE 0.9% 1,000 ML IV SCH ×2 (00:10→09:44)
[2021-10-22] MEDS: METRONIDAZOLE 500mg IVPB 500 MG/100 ML BAG IV SCH ×3 (02:32→17:30)
[2021-10-22] MEDS: FENTANYL CITR 100 MCG/2 ML IV PRN (02:44)
[2021-10-22 05:50] LABS: Absolute Lymphocytes (CBC) 1.5 K/uL (0.7-4.9); Hematocrit 31.6 % (36.0-45.0); Lymphocytes % 37.5 % (15.3-44.8); MPV 9.2 fL (7.6-11.3); RBC Red Blood Cell Count 4.26 M/uL (3.86-4.86)
--- NOTE | 2021-10-22 06:12 | P.PN ---
Subjective Date of Service: 10/22/21 Chief Complaint: colitis Subjective: Improving, Doing well Physical Examination - Vital Signs Temperature: 97.5 F Blood Pressure: 82/52 Pulse: 57 Respirations: 18 Pulse Ox (%): 99 Assessment & Plan Discharge Plan: Home Plan to discharge in: 24 Hours Physician Review Additional Text: COVID: positive CT scan: COMPARISON: <Comparisons> TECHNIQUE: Biphasic CT imaging of the abdomen and pelvis was performed with 100 ml non-ionic IV contrast. All CT scans are performed using dose optimization technique as appropriate and may include automated exposure control or mA/KV adjustment according to patient size. FINDINGS: The lung bases are clear.Cholecystectomy clips. The liver, spleen, pancreas, adrenal glands and kidneys are within normal limits . Postsurgical changes are present involving small intestine on the left. Moderate retained stool is seen in the colon. There is moderate thickening of the descending colon suspicious for colitis. The appendix is normal. No free air, free fluid or abscess. No evidence of significant lymphadenopathy. No suspicious bony findings. IMPRESSION: Moderate descending colitis is present. No pneumatosis coli or other complicating feature. Physical exam: General: Alert HEENT: Atraumatic, PERRLA, Mucous membr. moist/pink, EOMI, Sclerae nonicteric Neck: Supple, 2+ carotid pulse no bruit, No LAD, Without JVD or thyroid abnormality Respiratory: Clear to auscultation bilaterally, Normal air movement Cardiovascular: Regular rate/rhythm, Normal S1 S2 Gastrointestinal: No significant pain noted Musculoskeletal: No tenderness Integumentary: No rashes Neurological: Normal speech, Normal strength at 5/5 x4 extr, Normal tone, Normal affect Lymphatics: No axilla or inguinal lymphadenopathy Impression: Nausea, abdominal pain secondary to left-sided colitis Anemia of chronic disease with iron deficiency Positive COVID 19, asymptomatic Plan: Nausea, abdominal pain secondary to left-sided colitis: No significant pain noted. Patient tolerating soft diet. Case discussed with surgery. We will plan for discharge today. Continue soft diet then advance to low residue diet. Continue Cipro and Flagyl for total of 10 days. We will provide medication for pain. Follow-up with surgery in 1 to 2 weeks to follow-up hospitalization. Patient will need colonoscopy in 4 to 6 weeks. Anemia of chronic disease with iron deficiency: Patient transfused 2 units of blood. Overall stable. Of discharge patient will continue with iron supplementation at discharge. Recommend to recheck labCBC in 1 to 2 weeks to monitor progress. Positive COVID 19, asymptomatic: Patient asymptomatic at this time. Currently on room air. Will provide medication for cough. Continue with COVID-19 recommendations CODE STATUS: Full code DVT prophylaxis: SCD Advance care minutes: Home at discharge Time Spent Managing Pts Care (In Minutes): 55
[2021-10-22 06:22] LABS: Albumin 2.1 g/dL (3.4-5.0); BUN Blood Urea Nitrogen 2 mg/dL (7-18); Bicarbonate 24 mmol/L (21-32); Glucose Level 89 mg/dL (74-106); Magnesium 2.1 mg/dL (1.8-2.4); Potassium 3.6 mmol/L (3.5-5.1); Sodium Level 140 mmol/L (136-145)
[2021-10-22 06:31] LABS: ALT/SGPT 48 U/L (12-78); AST/SGOT 25 U/L (15-37); Alkaline Phosphatase 96 U/L (45-117); Bilirubin Total 0.2 mg/dL (0.2-1.0); Ferritin 283.8 ng/mL (8-388); Protein, Total 5.3 g/dL (6.4-8.2)
[2021-10-22] MEDS ORDERED: POTASSIUM CL SA 10 MEQ TAB PO ONE (09:00)
[2021-10-22] MEDS ORDERED: THIAMINE 200 MG/2 ML INJ IVP SCH (09:00)
[2021-10-22] MEDS: FOLIC ACID 1 MG in NA CHLORIDE 0.9% 50 ML IV SCH (09:00)
--- NOTE | 2021-10-22 09:21 | P.PN ---
Subjective Date of Service: 10/21/21 Chief Complaint: colitis Subjective: Improving (tolerating clears, + normal BM, pain improved) Physical Examination - Vital Signs Temperature: 98.2 F Blood Pressure: 89/54 Pulse: 65 Respirations: 18 Pulse Ox (%): 94 - Physical Exam General: Alert, In no apparent distress, Cooperative HEENT: Mucous membr. moist/pink Neck: Without JVD or thyroid abnormality Respiratory: Clear to auscultation bilaterally, Normal air movement Cardiovascular: Regular rate/rhythm Gastrointestinal: Other (soft, mild LLQ TTP, ND, no rebound, no peritoneal signs) - Studies Microbiology Data (last 24 hrs): 10/19/21 20:19 Stool Culture & Sensitivity - Final Assessment And Plan - Current Problems (Diagnosis) (1) Colitis Current Visit: Yes Status: Acute Plan: - continue antibioitcs - advance diet soon - ambulate - will need colonoscopy as outpatient Physician Review Additional Text: COVID: positive CT scan: COMPARISON: <Comparisons> TECHNIQUE: Biphasic CT imaging of the abdomen and pelvis was performed with 100 ml non-ionic IV contrast. All CT scans are performed using dose optimization technique as appropriate and may include automated exposure control or mA/KV adjustment according to patient size. FINDINGS: The lung bases are clear.Cholecystectomy clips. The liver, spleen, pancreas, adrenal glands and kidneys are within normal limits. Postsurgical changes are present involving small intestine on the left. Moderate retained stool is seen in the colon. There is moderate thickening of the descending colon suspicious for colitis. The appendix is normal. No free air, free fluid or abscess. No evidence of significant lymphadenopathy. No suspicious bony findings. IMPRESSION: Moderate descending colitis is present. No pneumatosis coli or other complicating feature. Physical exam: General: Alert HEENT: Atraumatic, PERRLA, Mucous membr. moist/pink, EOMI, Sclerae nonicteric Neck: Supple, 2+ carotid pulse no bruit, No LAD, Without JVD or thyroid abnormality Respiratory: Clear to auscultation bilaterally, Normal air movement Cardiovascular: Regular rate/rhythm, Normal S1 S2 Gastrointestinal: Less abdominal pain noted. Musculoskeletal: No tenderness Integumentary: No rashes Neurological: Normal speech, Normal strength at 5/5 x4 extr, Normal tone, Normal affect Lymphatics: No axilla or inguinal lymphadenopathy Impression: Nausea, abdominal pain secondary to left-sided colitis Anemia of chronic disease with iron deficiency Positive COVID 19, asymptomatic Plan: Nausea, abdominal pain secondary to left-sided colitis: Less abdominal pain noted. Will advance diet to clear liquids. Continue IV fluids. Continue IV antibiotic therapyCipro and Flagyl. Case discussed with surgery. We will slowly advance diet over the next 1 to 2 days. Hemoglobin was low this morning. Will transfuse 2 units. Anticipate continued improvement. Anemia of chronic disease with iron deficiency: We will transfuse 2 units of blood. Maintain hemoglobin above 7.5. Positive COVID 19, asymptomatic: Patient appears asymptomatic. Patient on room air. We will monitor this closely. CODE STATUS: Full code DVT prophylaxis: SCD Advance care [id number] minutes: Home at discharge
--- NOTE | 2021-10-22 09:22 | P.PN ---
Subjective Date of Service: 10/22/21 Chief Complaint: colitis Subjective: Improving (pain free, tolerated clears. + bowel function) Physical Examination - Vital Signs Temperature: 98.2 F Blood Pressure: 89/54 Pulse: 65 Respirations: 18 Pulse Ox (%): 94 - Physical Exam General: Alert, In no apparent distress, Cooperative Neck: Supple, Without JVD or thyroid abnormality Respiratory: Clear to auscultation bilaterally, Normal air movement, Diminished Cardiovascular: Regular rate/rhythm Gastrointestinal: Soft and benign, Non-distended, No tenderness, No masses, No rebound, No guarding - Studies Microbiology Data (last 24 hrs): 10/19/21 20:19 Stool Culture & Sensitivity - Final Assessment And Plan - Current Problems (Diagnosis) (1) Colitis Current Visit: Yes Status: Acute Plan: - continue antibioitcs as outpatient x 10 days - advance diet to soft low residue - ambulate - will need colonoscopy as outpatient Physician Review Additional Text: COVID: positive CT scan: COMPARISON: <Comparisons> TECHNIQUE: Biphasic CT imaging of the abdomen and pelvis was performed with 100 ml non-ionic IV contrast. All CT scans are performed using dose optimization technique as appropriate and may include automated exposure control or mA/KV adjustment according to patient size. FINDINGS: The lung bases are clear.Cholecystectomy clips. The liver, spleen, pancreas, adrenal glands and kidneys are within normal limits. Postsurgical changes are present involving small intestine on the left. Moderate retained stool is seen in the colon. There is moderate thickening of the descending colon suspicious for colitis. The appendix is normal. No free air, free fluid or abscess. No evidence of significant lymphadenopathy. No suspicious bony findings. IMPRESSION: Moderate descending colitis is present. No pneumatosis coli or other complicating feature. Physical exam: General: Alert HEENT: Atraumatic, PERRLA, Mucous membr. moist/pink, EOMI, Sclerae nonicteric Neck: Supple, 2+ carotid pulse no bruit, No LAD, Without JVD or thyroid abnormality Respiratory: Clear to auscultation bilaterally, Normal air movement Cardiovascular: Regular rate/rhythm, Normal S1 S2 Gastrointestinal: Less abdominal pain noted. Musculoskeletal: No tenderness Integumentary: No rashes Neurological: Normal speech, Normal strength at 5/5 x4 extr, Normal tone, Normal affect Lymphatics: No axilla or inguinal lymphadenopathy Impression: Nausea, abdominal pain secondary to left-sided colitis Anemia of chronic disease with iron deficiency Positive COVID 19, asymptomatic Plan: Nausea, abdominal pain secondary to left-sided colitis: Less abdominal pain noted. Will advance diet to clear liquids. Continue IV fluids. Continue IV antibiotic therapyCipro and Flagyl. Case discussed with surgery. We will slowly advance diet over the next 1 to 2 days. Hemoglobin was low this morning. Will transfuse 2 units. Anticipate continued improvement. Anemia of chronic disease with iron deficiency: We will transfuse 2 units of bl ood. Maintain hemoglobin above 7.5. Positive COVID 19, asymptomatic: Patient appears asymptomatic. Patient on room air. We will monitor this closely. CODE STATUS: Full code DVT prophylaxis: SCD Advance care [id number] minutes: Home at discharge
[2021-10-22] MEDS: SOD FERRIC GLUC COMPLX/SUCROSE 125 MG in NA CHLORIDE 0.9% 100 ML IV SCH (09:33)
[2021-10-22] MEDS: CIPROFLOXACIN 400mg IV 400 MG/200 ML BAG IV SCH (09:35)
[2021-10-22] MEDS: BENZONATATE 100 MG CAP PO PRN ×2 (09:44→15:14)
--- NOTE | 2021-10-22 13:36 | P.DS ---
Admission Date: 10/20/21 Discharge Date: 10/22/21 Primary Care Provider: unknown Disposition: ROUTINE DISCHARGE Discharge Condition: GOOD Reason for Admission: colitis Consultations: Surgery-Dr. Bee Procedures: COVID: positive CT scan: COMPARISON: <Comparisons> TECHNIQUE: Biphasic CT imaging of the abdomen and pelvis was performed with 100 ml non-ionic IV contrast. All CT scans are performed using dose optimization technique as appropriate and may include automated exposure control or mA/KV adjustment according to patient size. FINDINGS: The lung bases are clear.Cholecystectomy clips. The liver, spleen, pancreas, adrenal glands and kidneys are within normal limits. Postsurgical changes are present involving small intestine on the left. Moderate retained stool is seen in the colon. There is moderate thickening of the descending colon suspicious for colitis. The appendix is normal. No free air, free fluid or abscess. No evidence of significant lymphadenopathy. No suspicious bony findings. IMPRESSION: Moderate descending colitis is present. No pneumatosis coli or other complicating feature. Medical Problem List: Nausea, abdominal pain secondary to left-sided colitis Anemia of chronic disease with iron deficiency Positive COVID 19, asymptomatic Brief History of Present Illness: 41-year-old female presented with left lower quadrant abdominal pain. Patient found to have colitis. Patient was also positive for COVID without major symptoms. Patient was admitted for treatment. Hospital Course: Patient presented with nausea, abdominal pain secondary to left-sided colitis. Patient was admitted for treatment. Patient did well with IV antibiotic therapy and IV fluids. Surgery was consulted. No surgical invention was required. Patient has tolerated her diet. At discharge patient will continue with Cipro 500 mg 1 pill twice daily and Flagyl 500 mg 3 times a day for 8 more days. Patient will be provided lactobacillus 3 times a day as well. A limited supply of tramadol 50 mg 1 pill twice daily as needed for pain will be provided. Recommend follow-up with surgery in 1 week to follow-up his hospitalization. Patient will need a colonoscopy in 4 to 6 weeks to further evaluate. Education on colitis provided. Patient with anemia chronic disease with iron deficiency. During the course of her stay patient received transfusion of blood. Hemoglobin improved and stable. Discharge patient will continue with iron supplementation 325 mg 1 pill twice daily. Recommend to recheck labCBC in 1 to 2 weeks to monitor progress. Patient was positive for COVID-19. Patient appears to be asymptomatic at this time. Patient on room air. Will provide Tessalon Perles 100 mg 3 times a day as needed for cough. At discharge we will continue with CDC guidelines on COVID-19 including facemask use, handwashing and social distancing. Vital Signs/Physical Exam: Temp Pulse Resp BP Pulse Ox 97.5 F 57 18 82/52 L 99 10/22/21 13:29 10/22/21 13:29 10/22/21 13:29 10/22/21 13:29 10/22/21 13:29 General: Alert, In no apparent distress, Oriented x3, Cooperative HEENT: Atraumatic, Normocephalic Neck: Supple Respiratory: Clear to auscultation bilaterally, Normal air movement Cardiovascular: Normal pulses, Regular rate/rhythm Gastrointestinal: Normal bowel sounds, No tenderness, No masses, No rebound, No guarding Integumentary: No tenderness/swelling, No erythema, No warmth, No cyanosis Neurological: Normal speech, Normal strength at 5/5 x4 extr, Normal tone, Normal affect Laboratory Data at Discharge: WBC 4.00 K/uL (4.3-10.9) L 10/22/21 05:13 Hgb 10.1 g/dL (12.0-15.0) L D 10/22/21 05:13 Hct 31.6 % (36.0-45.0) L D 10/22/21 05:13 Plt Count 293 K/uL (152-406) 10/22/21 05:13 PT 11.5 SECONDS (9.5-12.5) 10/19/21 18:55 INR 1.00 10/19/21 18:55 Sodium 140 mmol/L (136-145) 10/22/21 05:13 Potassium 3.6 mmol/L (3.5-5.1) 10/22/21 05:13 BUN 2 mg/dL (7-18) L 10/22/21 05:13 Creatinine 0.56 mg/dL (0.55-1.3) 10/22/21 05:13 Glucose 89 mg/dL (74-106) 10/22/21 05:13 Magnesium 2.1 mg/dL (1.8-2.4) 10/22/21 05:13 Total Bilirubin 0.2 mg/dL (0.2-1.0) 10/22/21 05:13 AST 25 U/L (15-37) 10/22/21 05:13 ALT 48 U/L (12-78) 10/22/21 05:13 Alkaline Phosphatase 96 U/L (45-117) 10/22/21 05:13 Triglycerides 80 mg/dL (<150) 10/20/21 03:24 Cholesterol 97 mg/dL (<200) 10/20/21 03:24 HDL Cholesterol 54 mg/dL (40-60) 10/20/21 03:24 Cholesterol/HDL Ratio 1.80 10/20/21 03:24 Lipase 53 U/L (73-393) L 10/19/21 18:48 Home Medications: Cyanocobalamin [Vitamin B-12*] 1,000 mcg IJ EVERY 7TH DAY 02/03/16 Benzonatate [Tessalon Perle*] 100 mg PO TID PRN #10 cap 10/22/21 Ciprofloxacin HCl [Cipro 500 MG Tablet] 500 mg PO BID #16 tab 10/22/21 Ferrous Sulfate [Ferrous Sulfate*] 325 mg PO BID #60 tab 10/22/21 Lactobacillus Acidophilus [Acidophilus Lactobacilli] 1 each PO TID #30 capsule 10/22/21 metroNIDAZOLE [Flagyl] 500 mg PO Q8H #24 tablet 10/22/21 traMADol HCL [Ultram*] 50 mg PO TID PRN #10 tab 10/22/21 New Medications: Lactobacillus Acidophilus [Acidophilus Lactobacilli] 1 each PO TID #30 capsule Ciprofloxacin HCl [Cipro 500 MG Tablet] 500 mg PO BID #16 tab Ferrous Sulfate [Ferrous Sulfate*] 325 mg PO BID #60 tab metroNIDAZOLE [Flagyl] 500 mg PO Q8H #24 tablet Benzonatate [Tessalon Perle*] 100 mg PO TID PRN #10 cap PRN Reason: Cough traMADol HCL [Ultram*] 50 mg PO TID PRN #10 tab PRN Reason: Pain Physician Discharge Instructions: Patient presented with nausea, abdominal pain secondary to left-sided colitis. Patient was admitted for treatment. Patient did well with IV antibiotic therapy and IV fluids. Surgery was consulted. No surgical invention was required. Patient has tolerated her diet. At discharge patient will continue with Cipro 500 mg 1 pill twice daily and Flagyl 500 mg 3 times a day for 8 more days. Patient will be provided lactobacillus 3 times a day as well. A limited supply of tramadol 50 mg 1 pill twice daily as needed for pain will be provided. Recommend follow-up with surgery in 1 week to follow-up his hospitalization. Patient will need a colonoscopy in 4 to 6 weeks to further evaluate. Education on colitis provided. Patient with anemia chronic disease with iron deficiency. During the course of her stay patient received transfusion of blood. Hemoglobin improved and stable. Discharge patient will continue with iron supplementation 325 mg 1 pill twice daily. Recommend to recheck labCBC in 1 to 2 weeks to monitor progress. Patient was positive for COVID-19. Patient appears to be asymptomatic at this time. Patient on room air. Will provide Tessalon Perles 100 mg 3 times a day as needed for cough. At discharge we will continue with CDC guidelines on COVID-19 including facemask use, handwashing and social distancing. Diet: AHA Activity: Ad khadijah Followup: Jon Kingston MD [Primary Care Provider] - Time spent managing pt's care (in minutes): 55
[2021-10-22 17:24] VITALS: BP 112/63; TEMP 98
== END 2021-10-22 18:16 | disposition home or self-care (01) | DRG 385 ==
LOC: ER 17:48 → ERHOLD 21:19 → OBSVTOIN 10-20 10:38 → 4TH 10-20 18:28
PROVIDERS: ADMIT Family Medicine; ATTEND Family Medicine
DX: K51.50 Left sided colitis without complications (principal); U07.1 COVID-19; E86.0 Dehydration; D50.9 Iron deficiency anemia, unspecified; Z88.5 Allergy status to narcotic agent; Z79.899 Other long term (current) drug therapy; Z98.84 Bariatric surgery status; Z90.49 Acquired absence of other specified parts of digestive tract; Z20.822 Contact with and (suspected) exposure to COVID-19
CPT/HCPCS: 36415; 74177; 80048; 80053; 80061; 80076; 80329; 81003; 82274; 82565; 82728; 83540; 83605; 83690; 83735; 84145; 84466; 85025; 85610; 86140; 86850; 86900; 86901; 87045; 87046; 87177; 87209; 89055; 96374; 96375; 99285; C9113; G0378; J0744; J1170; J2175; J2405; J2550; J2916; J3010; J3411; J7030; J7050; P9016; Q9967; U0003

== ENCOUNTER 2021-11-07 06:55 | Day surgery (SDC) | payer BC ==
[2021-11-07] MEDS ORDERED: Ringers Lactate 1,000 ML IV ONE (07:03)
[2021-11-07] MEDS ORDERED: MIDAZOLAM HCL 2 MG/2 ML INJ ONE (08:06)
[2021-11-07] MEDS ORDERED: LIDOCAINE 1% MPF 5 ML VIAL ONE (08:06)
[2021-11-07] MEDS ORDERED: propofoL 200 MG/20 ML VIAL IV ONE (08:06)
--- NOTE | 2021-11-07 08:35 | ENDO RPT ---
[address], [address] COLONOSCOPY PROCEDURE REPORT EXAM DATE: 11/07/2021 PATIENT NAME: Amy Vee MR #: [id number] BIRTHDATE: 1980 ATTENDING: Jared Bee DR STATUS: outpatient [employer] OPERATOR: Zita Smith RN and Akanksha Ba CST INDICATIONS: The patient is a 41 yr old Female here for a colonoscopy due to rectal bleeding PROCEDURE PERFORMED: Colonoscopy with biopsy MEDICATIONS: Per Anesthesia. ESTIMATED BLOOD LOSS: None CONSENT: The patient understands the risks and benefits of the procedure and understands that these risks include, but are not limited to: sedation, allergic reaction, infection, perforation and/or bleeding. Alternative means of evaluation and treatment include, among others: physical exam, x-rays, and/or surgical intervention. The patient elects to proceed with this endoscopic procedure. DESCRIPTION OF PROCEDURE: During intra-op preparation period all mechanical medical equipment was checked for proper function. Hand hygiene and appropriate measures for infection prevention was taken. Procedure, possible complications, alternatives including, but not limited to possibility of bleeding, perforation, tear, infection, sepsis, need for surgery, need for blood transfusion, were explained to the patient. After the risks, benefits and alternatives of the procedure were thoroughly explained, Informed consent was verified, confirmed and timeout was successfully executed by the treatment team. The patient was placed in the left lateral position. A digital rectal exam was performed and revealed internal hemorrhoids. After appropriate level of anesthesia, the scope was passed. The [id number] ([id number] endoscope was introduced through the anus and advanced to the cecum, which was identified by both the appendix and ileocecal valve. The quality of the prep was fair. The instrument was then slowly withdrawn as the colon was fully examined. Scope withdrawal time was 9 minutes. COLON FINDINGS: A small patch of abnormal mucosa was found in the descending colon. The mucosa was erythematous. A biopsy of the lesion was performed using cold forceps. Internal and external hemorrhoids were found. Retroflexed views revealed no abnormalities. The scope was then completely withdrawn from the patient and the procedure terminated. ADVERSE EVENTS: There were no complications. IMPRESSIONS: 1. Small abnormal mucosa was found in the descending colon; The mucosa was erythematous; biopsy of the lesion was performed using cold forceps 2. Internal and external hemorrhoids RECOMMENDATIONS: 1. avoid NSAIDS for 2 weeks 2. fiber rich diet 3. await biopsy results 4. follow-up: office 2 week(s) 5. Monitor for any evidence of rectal bleeding. 6. yearly hemoccult starting in 4 years 7. hemorrhoidal hygiene 8. increase dietary water RECALL: for Colonoscopy, pending biopsy results. Pending Biopsy Jared Bee DR eSigned: Jared Bee DR 11/07/2021 8:34 AM cc: CPT CODES: ICD9 CODES: PATIENT NAME: Amy Vee MR#: [id number]
[2021-11-07 09:01] VITALS: TEMP 96.8
[2021-11-07 09:03] VITALS: O2SAT 100
[2021-11-07 09:29] VITALS: BP 106/69
== END 2021-11-07 09:45 | disposition home or self-care (01) ==
LOC: OR 06:55
PROVIDERS: ATTEND Surgery
PROC: 0DBM8ZX Excision of Descending Colon, Via Natural or Artificial Opening Endoscopic, Diagnostic (ICD-10-PCS; principal; 2021-11-07 08:00)
DX: K62.5 Hemorrhage of anus and rectum (principal); K52.9 Noninfective gastroenteritis and colitis, unspecified; K64.8 Other hemorrhoids; K64.4 Residual hemorrhoidal skin tags
CPT/HCPCS: 36415; 84703; 88305; 45380; J2704; J2250; J7120